=== PATIENT | female | born 1950 | race Caucasian/White ===

== ENCOUNTER 2017-11-03 10:39 | Emergency (ER) | payer MEDICARE, OTHER ==
[~2017-11-03] VITALS: Ht 160 cm; Wt 77.6 kg
[~2017-11-03 10:39] MED LIST: ALBAFORT325 MG PO; AMLODIPINE BESYL5 MG PO; B COMPLETE1 EACH PO; BENICAR 5 MG5 M1 PO; BENICAR40 MG PO; BIOTIN1 MG PO; CALCITRATE200 MG PO; CALCIUM CITRATE 1000 MG PO; CIPRO PO; CIPROFLOXACIN500 M3 PO; FERRO-TIME325 MG PO; FLOMAX PO; K-LOR20 MEQ PO; LISINOPRIL5 MG PO; MAG-OX 400 TAB400 M1 PO; MAGNESIUM400 MG PO; MEDROLDOSEPACK PO; MULTIVIT FLUOR PO; NAPROXEN 500MG500 M1 PO; NEURONTIN 300300 M1 PO; NEXIUM40 MG PO; NORCO 5-325 TA1 EACH PO; PERCOCET 5-3251 EACH PO; POTASSIUM20 PO; PROFERRIN12 MG PO; PROPAFENONE 22225 M1 PO; SELENIMIN50 MCG PO; SELENIUM100 MCG PO; SUPER B COMPLE1 EACH PO; SUPER B COMPLE150 MG PO; THERA M PLUS T1 EACH PO; VITAMIN A10000 UNI2 PO; VITAMIN A10000 UNI3 PO; VITAMIN B-1100 M1 PO; VITAMIN B12 5500 MC1 PO; VITAMIN D 5050000 I1 PO; VITAMIN E 400I400 I1 PO; VITAMIN E400 UNI6 PO; VITAMINC500 PO; ZINC CHELATE50 MG PO; ZINC PO; ZOFRAN 4 MG ORAL4 M1 DIS; ZOFRAN ODT4 MG PO; ZOLOFT 50 MG TA50 M1 PO
[2017-11-03] MEDS ORDERED: PROFERRIN12 MG PO (11:10)
[2017-11-03] MEDS ORDERED: MAGNESIUM CITR100 GM PO (11:10)
[2017-11-03] MEDS ORDERED: SELENIMIN200 MCG PO (11:11)
[2017-11-03] MEDS ORDERED: LIPITOR 20 MG T20 M1 PO (11:15)
[2017-11-03 11:16] LABS: ABSOLUTE EOSINOPHILS 0.1 thou/uL (0.0-0.7); ABSOLUTE LYMPHOCYTES 1.3 thou/uL (0.8-5.3); ABSOLUTE MONOCYTES 0.4 thou/uL (0.0-1.2); ABSOLUTE NEUTROPHILS 3.9 thou/uL (1.6-8.1); BASOPHILS 0.4 %; EOSINOPHILS 1.8 %; HEMATOCRIT 41.7 % (37.0-47.0); HEMOGLOBIN 13.5 gm/dL (12.0-15.0); LYMPHOCYTES 23.4 %; MCH 29.1 pg (26.0-34.0); MCHC 32.4 g/dL (28.0-37.0); MCV 89.8 fL (80.0-100.0); MONOCYTES 7.2 %; MPV 8.6 fl. (7.2-11.1); NUCLEATED RBCS 0 /100WBC; PLATELET COUNT* 114 thou/uL (150-400); POLYS 67.2 %; RBC 4.64 mil/uL (4.20-5.00); RDW-CV 13.9 % (10.5-14.5); WBC 5.7 thou/uL (4.0-11.0)
[2017-11-03] MEDS ORDERED: PROPAFENONE 22225 MG PO (11:16)
[2017-11-03] MEDS ORDERED: TARGADOX50 MG PO (11:16)
[2017-11-03] MEDS ORDERED: LASIX 40 MG TAB40 M2 PO (11:16)
[2017-11-03 11:17] LABS: URINE BILIRUBIN NEGATIVE (Negative); URINE BLOOD NEGATIVE (Negative); URINE CLARITY CLEAR; URINE COLOR YELLOW; URINE GLUCOSE-RANDOM NEGATIVE (Negative); URINE KETONES NEGATIVE (Negative); URINE LEUKOCYTES-REFLEX NEGATIVE (Negative); URINE NITRITE-REFLEX NEGATIVE (Negative); URINE PROTEIN NEGATIVE (Negative); URINE SPECIFIC GRAVITY 1.025 (1.005-1.030); URINE UROBILINOGEN 0.2 E.U./dl (0.2-1.0)
[2017-11-03 11:25] LABS: ANION GAP 9 mmol/L (7-16); BUN 25 mg/dL (7-18); CALCIUM 8.3 mg/dL (8.5-10.1); CHLORIDE 106 mmol/L (98-107); CO2 29 mmol/L (21-32); GLUCOSE 142 mg/dL (70-99); POTASSIUM 3.4 mmol/L (3.5-5.1); SODIUM 144 mmol/L (136-145)
[2017-11-03 11:52] LABS: ALKALINE PHOSPHATASE 211 U/L (46-116); NT-PRO BRAIN NAT PEPTIDE 48 pg/mL (<300); SGOT 14 U/L (15-37); SGPT 27 U/L (30-65); TOTAL BILIRUBIN 0.6 mg/dL (<0.1-1.0); TOTAL PROTEIN 7.1 g/dL (6.4-8.2); TROPONIN-I LEVEL <0.06 ng/mL (<0.06)
[2017-11-03 13:05] VITALS: BP 129/65
--- NOTE | 2017-11-03 15:52 | EKG ---
[place] [address] ELECTROCARDIOGRAM REPORT Name: DEVAUGHN STAPLES Room: [facility]#: [id number] Admission: 11/03/17 Attend Phys: Discharge: 11/03/17 Date of : 48 Report #: [id number] THIS REPORT FOR: //name// [facility] ED Test Date: 2017-11-03 Test Time: 11:03:43 Pat Name: DEVAUGHN STAPLES Department: Room: Gender: F Java Consultant: Liz NAIR : 1950 Requested By: Zackary Singer Order Number: [id number] MD: Tristan Ruby Measurements Intervals [place] Rate: 62 P: 19 MN: 146 QRS: -13 QRSD: 100 T: 22 QT: 417 QTc: 424 Interpretive Statements Sinus rhythm Compared to ECG 10/10/2016 03:15:32 T-wave abnormality no longer present Prolonged QT interval no longer present Electronically Signed On 11-03-2017 15:52:36 STATISTICAL MACHINE MECHANIC by Tristan Ruby [email or web address] <ELECTRONICALLY SIGNED> By: Tristan Ruby MD, [facility] 11/03/17 1552 1103 1103 Tristan Ruby MD, FAC /EPI
== END 2017-11-03 13:06 | disposition home or self-care (01) ==
LOC: M.ERS 10:39
PROVIDERS: Physician Assistant
DX: R42 Dizziness and giddiness (principal); R00.2 Palpitations; I48.91 Unspecified atrial fibrillation; M19.90 Unspecified osteoarthritis, unspecified site; Z87.442 Personal history of urinary calculi; Z98.890 Other specified postprocedural states

== ENCOUNTER 2018-09-11 23:36 | Inpatient (IN) | payer MEDICARE, OTHER ==
[~2018-09-11] VITALS: Ht 160 cm; Wt 88.0 kg
[~2018-09-11 23:36] MED LIST changes: +LASIX 40 MG TAB40 M2 PO; +LIPITOR 20 MG T20 M1 PO; +MAGNESIUM CITR100 GM PO; +PROPAFENONE 22225 MG PO; +SELENIMIN200 MCG PO; +TARGADOX50 MG PO
[2018-09-11 23:40] VITALS: BP 107/52
[2018-09-11] MEDS ORDERED: LOPRESSOR25 PO (23:47)
[2018-09-12 00:12] LABS: HEMATOCRIT 33.7 % (37.0-47.0); HEMOGLOBIN 10.8 gm/dL (12.0-15.0); MCH 28.1 pg (26.0-34.0); MCV 87.7 fL (80.0-100.0); MPV 8.5 fl. (7.2-11.1); NUCLEATED RBCS 0 /100WBC; PLATELET COUNT* 129 thou/uL (150-400); RBC 3.84 mil/uL (4.20-5.00); RDW-CV 14.1 % (10.5-14.5); WBC 9.3 thou/uL (4.0-11.0)
[2018-09-12 00:21] LABS: ANION GAP 9 mmol/L (7-16); BUN 22 mg/dL (7-18); CALCIUM 8.1 mg/dL (8.5-10.1); CHLORIDE 108 mmol/L (98-107); CO2 22 mmol/L (21-32); CREATININE 0.9 mg/dL (0.6-1.3); GLUCOSE 133 mg/dL (70-99); POTASSIUM 4.4 mmol/L (3.5-5.1); SODIUM 139 mmol/L (136-145)
[2018-09-12 00:24] LABS: INR 1.6; PROTIME 16.2 Seconds (9.20-11.50)
[2018-09-12 00:32] LABS: ALBUMIN 3.1 g/dL (3.4-5.0); ALKALINE PHOSPHATASE 113 U/L (46-116); NT-PRO BRAIN NAT PEPTIDE 136 pg/mL (<300); SGOT 18 U/L (15-37); SGPT 26 U/L (30-65); TOTAL BILIRUBIN 0.5 mg/dL (<0.1-1.0); TOTAL PROTEIN 6.1 g/dL (6.4-8.2); TROPONIN-I LEVEL <0.06 ng/mL (<0.06)
[2018-09-12 00:42] LABS: URINE BILIRUBIN NEGATIVE (Negative); URINE BLOOD NEGATIVE (Negative); URINE CLARITY CLEAR; URINE COLOR YELLOW; URINE GLUCOSE-RANDOM NEGATIVE (Negative); URINE KETONES NEGATIVE (Negative); URINE LEUKOCYTES-REFLEX NEGATIVE (Negative); URINE PROTEIN NEGATIVE (Negative); URINE SPECIFIC GRAVITY >= 1.030 (1.005-1.030); URINE UROBILINOGEN 0.2 E.U./dl (0.2-1.0)
[2018-09-12 00:51] LABS: URINE NITRITE-REFLEX POSITIVE (Negative)
[2018-09-12 01:25] LABS: ABSOLUTE EOSINOPHILS 0.1 thou/uL (0.0-0.7); ABSOLUTE LYMPHOCYTES 1.1 thou/uL (0.8-5.3); ABSOLUTE MONOCYTES 0.2 thou/uL (0.0-1.2); ABSOLUTE NEUTROPHILS 7.9 thou/uL (1.6-8.1)
[2018-09-12 01:26] LABS: PLATELET ESTIMATE DECREASED
[2018-09-12 01:58] LABS: CASTS None Seen /LPF (None Seen); MUCUS 0-3 Light strn/LPF (None Seen); SQUAMOUS >10 Many /LPF (0-3)
[2018-09-12 01:59] LABS: BACTERIA-REFLEX >30 Many /HPF (None Seen); CRYSTALS None Seen /LPF (None Seen); URINE RBC None Seen /HPF (0-2); URINE WBC-REFLEX 0-5 Rare /HPF (0-5)
[2018-09-12 04:47] VITALS: BP 115/58
[2018-09-12 05:13] VITALS: BP 94/48
[2018-09-12] MEDS ORDERED: MAGOX 400400 MG PO (06:19)
[2018-09-12] MEDS ORDERED: ASPIR 8181 MG PO (06:22)
[2018-09-12 08:00] VITALS: BP 103/57
[2018-09-12 12:01] VITALS: BP 115/52
[2018-09-12 16:45] VITALS: BP 126/59
--- NOTE | 2018-09-12 17:37 | 2DMMODE ---
[place] [address] 2 D/M-MODE ECHOCARDIOGRAM Name: DEVAUGHN STAPLES Room: [address] IN [facility]#: [id number] Admission: 09/12/18 Attend Phys: Romeo Segovia, Discharge: Date of : 48 Date of Service: 09/12/18 1737 Report #: [id number] THIS REPORT FOR: //name// APPROVED REPORT Study performed: 09/12/2018 14:09:59 EXAM: Comprehensive 2D, Doppler, and color-flow Echocardiogram Patient Location: In-Patient Room #: [facility] Status: routine BSA: 1.88 HR: 75 bpm BP: 103/57 mmHg Rhythm: NSR Other Information Study Quality: Good Indications Hypotension Congestive Heart Failure 2D Dimensions IVSd: 11.88 (7-11mm) LVOT Diam: 18.83 (18-24mm) LVDd: 54.24 mm PWd: 9.18 (7-11mm) Ascending Ao: 29.60 (22-36mm) LVDs: 32.57 (25-40mm) Aortic Root: 27.45 mm Volumes Left Atrial Volume (Systole) LA ESV Index: 37.70 mL/m2 Aortic Valve AoV Peak Jese.: 1.93 m/s AO Peak Gr.: 14.92 mmHg LVOT Max P.14 mmHg AO Mean Gr.: 8.63 mmHg LVOT Mean P.85 mmHg LVOT Max V: 1.59 m/s AO V2 VTI: 40.71 cm LVOT Mean V: 1.00 m/s ASIA (VTI): 2.47 cm2 LVOT V1 VTI: 36.06 cm Mitral Valve E/A Ratio: 0.73 MV Decel. Time: 256.92 [place] [address] 2 D/M-MODE ECHOCARDIOGRAM Name: DEVAUGHN STAPLES Room: [address] IN [facility]#: [id number] Admission: 09/12/18 Attend Phys: Romeo Segovia, Discharge: Date of : 48 Date of Service: 09/12/18 1737 Report #: [id number] MV E Max Jese.: 1.07 m/s MV PHT: 74.51 ms MVA (PHT): 2.95 cm2 TDI E/Lateral E': 9.73 E/Medial E': 10.70 Medial E' Jese.: 0.10 m/s Lateral E' Jese.: 0.11 m/s Pulmonary Valve PV Peak Jese.: 1.13 m/s PV Peak Gr.: 5.11 mmHg Tricuspid Valve RAP Estimate: 5.00 mmHg TR Peak Gr.: 26.10 mmHg RVSP: 31.00 mmHg PA Pressure: 31.00 mmHg Left Ventricle The left ventricle is normal size. There is normal LV segmental wall motion. There is normal left ventricular wall thickness. Left ventricular systolic function is normal. The left ventricular ejection fraction is within the normal range. LVEF is 60-65%. Grade I - abnormal relaxation pattern. Right Ventricle The right ventricle is normal size. The right ventricular systolic function is normal. Atria Left atrium is mildly dilated. The right atrium size is normal. Aortic Valve The aortic valve is normal in structure. No aortic regurgitation is present. There is no aortic valvular stenosis. Mitral Valve The mitral valve is normal in structure. Trace mitral regurgitation. No evidence of mitral valve stenosis. Tricuspid Valve The tricuspid valve is normal in structure. Mild tricuspid regurgitation. Mild pulmonary hypertension. Pulmonic Valve The pulmonary valve is normal in structure. There [place] [address] 2 D/M-MODE ECHOCARDIOGRAM Name: DEVAUGHN STAPLES Room: [address]#: [id number] Admission: 09/12/18 Attend Phys: Romeo Segovia, Discharge: Date of : 48 Date of Service: 09/12/18 1737 Report #: [id number] valvular regurgitation. Great Vessels The aortic root is normal in size. IVC is normal in size and collapses >50% with inspiration. Pericardium There is no pericardial effusion. <Conclusion> The left ventricle is normal size. There is normal left ventricular wall thickness. Left ventricular systolic function is normal. The left ventricular ejection fraction is within the normal range. LVEF is 60-65%. Grade I - abnormal relaxation pattern. The right ventricle is normal size. Left atrium is mildly dilated. The aortic valve is normal in structure. The mitral valve is normal in structure. The tricuspid valve is normal in structure. IVC is normal in size and collapses >50% with inspiration. There is normal LV segmental wall motion. <ELECTRONICALLY SIGNED> By: Tristan Ruby MD, FACC 09/12/18 1737 [id number] Tristan Ruby MD, FACC /INF
[2018-09-12 19:45] VITALS: BP 125/63
[2018-09-13] VITALS: BP 110/56
[2018-09-13 04:00] VITALS: BP 118/56
[2018-09-13 04:49] LABS: HEMOGLOBIN 9.5 gm/dL (12.0-15.0); MCH 28.6 pg (26.0-34.0); MCHC 32.7 g/dL (28.0-37.0); MCV 87.6 fL (80.0-100.0); RBC 3.31 mil/uL (4.20-5.00); RDW-CV 14.2 % (10.5-14.5); WBC 4.7 thou/uL (4.0-11.0)
[2018-09-13 05:02] LABS: ALBUMIN 2.5 g/dL (3.4-5.0); CALCIUM 7.8 mg/dL (8.5-10.1); CREATININE 0.8 mg/dL (0.6-1.3); MAGNESIUM 1.8 mg/dL (1.8-2.4); TOTAL BILIRUBIN 0.4 mg/dL (<0.1-1.0); TOTAL PROTEIN 5.3 g/dL (6.4-8.2)
[2018-09-13 06:47] LABS: INFLUENZA A ANTIGEN None Detected (None Detect); INFLUENZA B ANTIGEN None Detected (None Detect)
[2018-09-13 07:45] VITALS: BP 126/63
--- NOTE | 2018-09-13 07:46 | CON ---
[address] [address] CONSULTATION Name: DEVAUGHN STAPLES Room: [address] IN M.R.#: [id number] Admission: 09/12/18 Attend Phys: Romeo Segovia MD Discharge: Date of : 48 Report #: [id number] THIS REPORT FOR: //name// CC: Romeo Morin DATE OF SERVICE: 09/12/2018 INFECTIOUS DISEASE CONSULTATION ATTENDING PHYSICIAN: Dr. Weems REASON FOR EVALUATION: Febrile illness. HISTORY OF PRESENT ILLNESS: Chart reviewed, patient examined. This is a 68-year-old woman with a history of recurrent febrile episodes. She states initial one back post procedure when she had a biliopancreatic diversion with duodenal switch. Since that time, she has had recurrent issues of febrile illness some of which initially involved gastrointestinal related complaints including nausea and vomiting. This was followed by generalized arthralgias primarily involving the knees, ankles and hands. She was at one point diagnosed with bacterial overgrowth. She had a pattern of taking 1 out of every 4 weeks of doxycycline as a prophylactic measure. This was discontinued. More recently, she was noted to have fevers some of which were high grade felt to be consistent. She did have a significant amount of GI related complaints with this; however, developed generalized arthralgias. She was treated with doxycycline and seemed to have a clinical improvement only to have what they suggest was relapse post discontinuation. She is not encephalopathic. Overall, she feels quite a bit better than she did yesterday. She had developed a near syncopal episode with some nausea and a single episode of emesis, which she attributed to perhaps dehydration. She was found to be hypotensive as well. She was empirically dosed with Levaquin, Zosyn and given a dose of doxycycline as well. She is not confused at this point. ALLERGIES: None known. CURRENT MEDICATIONS: Include doxycycline, enoxaparin, hydrocodone, ergocalciferol, aspirin, magnesium, atorvastatin, ascorbic acid, ferrous sulfate, calcium carbonate, thiamine, iron, ondansetron and pantoprazole. PAST MEDICAL HISTORY: He has had renal lithiasis, previous history of septicemia with obstructive uropathy, diverticulosis, atrial fibrillation, diabetes mellitus type 2, obstructive sleep apnea, osteoarthritis, carpal tunnel, breast reduction, bilateral total knee arthroplasties in 2000 and the biliopancreatic diversion [place] [address] CONSULTATION Name: DEVAUGHN STAPLES Room: [address] IN [facility]#: [id number] Admission: 09/12/18 Attend Phys: Romeo Segovia MD Discharge: Date of : 48 Report #: [id number] SOCIAL HISTORY: Nonsmoker and no ethanol. FAMILY HISTORY: Noncontributory. REVIEW OF SYSTEMS: Notable as above, otherwise a 10-point review of systems is unremarkable. PHYSICAL EXAMINATION: GENERAL: She is alert, cooperative, appropriate, appears somewhat chronically ill-appearing, in mild distress and slightly undernourished. VITAL SIGNS: Temperature 97.8, pulse 62, respirations 16 and blood pressure 103/57. SKIN: Warm and dry. HEENT AND NECK: Neck is supple. No oral lesions. No conjunctivitis. LUNGS: Diminished breath sounds and scattered crackles at the bases. HEART: Regular. I do not appreciate a murmur. No rub. ABDOMEN: Soft, nontender and nondistended. EXTREMITIES: No cyanosis or edema. GENITOURINARY AND RECTAL: Deferred. LABORATORY DATA: PT of 16.2 and INR of 1.6. D-dimer of 0.52. Lactic acid 1.2. Electrolytes: Sodium 139, potassium 4.4, chloride 108, bicarbonate is 22, anion gap of 9, BUN and creatinine 22 and 0.9 and glucose of 133. LFTs are unremarkable. Albumin of 3.1, total protein 6.1. Estimated GFR of 62. CBC: White count of 9.3, H and H 10.8 and 33.7 and platelets of 129. Differential did show 12% bands. Urinalysis: 0-5 white cells, greater than 30 bacteria with 10 squamous. CRP of less than 2.0 with a sed rate of 42. CTA of the chest, patchy basilar infiltrates, question atelectasis versus pneumonitis: CT of abdomen and pelvis, no inflammatory masses, ascites, bowel obstruction or other acute process, nonobstructing left-sided nephrolithiasis, nonspecific splenomegaly and scattered colonic diverticulosis. ASSESSMENT: Febrile illness with generalized arthralgias certainly raises the question of some sort of a nonbacterial etiology such as viral or perhaps immune driven. Doxycycline seems to have alleviated in the past. We will do some serologies. There is no evidence of any intraabdominal, pelvic inflammatory process. At this point, she is not overtly toxic. We will continue the doxycycline. We will await the outstanding cultures. <ELECTRONICALLY SIGNED> By: Lewis Penn MD 09/13/18 0746 1145 [id number] Penn MD /nt
--- NOTE | 2018-09-13 11:12 | EKG ---
[place] [address] ELECTROCARDIOGRAM REPORT Name: DEVAUGHN STAPLES Room: [address] ADM IN .R.#: [id number] Admission: 09/12/18 Attend Phys: Romeo Segovia MD Discharge: Date of : 48 Report #: [id number] THIS REPORT FOR: //name// [facility] ED Test Date: 2018-09-11 Test Time: 23:48:25 Pat Name: DEVAUGHN STAPLES Department: Room: [facility] Gender: F Rug Sizer: : 1950 Requested By: Radha Kingston Order Number: [id number] MD: Awais Landaverde Measurements Intervals [place] Rate: 68 P: 32 NM: 155 QRS: -1 QRSD: 102 T: 31 QT: 419 QTc: 446 Interpretive Statements Sinus rhythm Low voltage, precordial leads Compared to ECG 11/03/2017 11:03:43 Low QRS voltage now present Electronically Signed On 09-13-2018 11:11:52 PHP MYSQL WEB DEVELOPER by Awais Landaverde [email or web address] <ELECTRONICALLY SIGNED> By: Awais Landaverde MD, FACC 09/13/18 1111 [id number] Awais Landaverde MD, FAC /EPI
[2018-09-13 12:00] VITALS: BP 107/45
[2018-09-13 13:12] LABS: CMV IgM Abs <30.0 AU/mL (0.0-29.9)
[2018-09-13 16:00] VITALS: BP 121/66
[2018-09-13 20:00] VITALS: BP 117/75
[2018-09-14 04:08] VITALS: BP 139/68
[2018-09-14] MEDS ORDERED: BACTRIM DS TAB1 EACH PO (12:31)
[2018-09-14] MEDS ORDERED: SENNA S TABLET1 EACH PO (12:37)
[2018-09-14 14:09] LABS: ANA INTERPRETATION Negative (Negative)
[2018-09-14 14:59] VITALS: BP 139/68
--- NOTE | 2018-09-26 17:35 | CON ---
[address] [address] CONSULTATION Name: JHOANDEVAUGHN L Room: [address] IN M.R.#: [id number] Admission: 09/12/18 Attend Phys: Romeo Segovia MD Discharge: 09/14/18 Date of : 48 Report #: [id number] THIS REPORT FOR: //name// CC: Romeo Morin MD DATE OF SERVICE: 09/12/2018 REFERRING PHYSICIAN: Romeo Segovia MD. REASON FOR CONSULTATION: Recurrent bacterial overgrowth. IMPRESSION: 1. Recurrent small bowel bacterial overgrowth with the patient having risk factors for the same including previous gastric bypass and need for chronic proton pump inhibitor therapy. 2. Recurrent iron deficiency anemia secondary to previous surgery. 3. History of remote biliopancreatic diversion with duodenal switch in 2007 in [place]. 4. Intolerance to FLAGYL with inability to take this for the same. RECOMMENDATIONS: 1. At the present time, I am not terribly concerned about the patient's nausea and vomiting. She is not really having a lot of problem with nausea and vomiting at this time, but we are concerned about gas, bloating and issues with temperatures and fatigue. I am not familiar with the bacterial overgrowth causes fevers and chills, so I doubt that this is causing any of her issues as well. She had been maintained on chronic doxycycline, which has helped for which she will take that for a week at a time, but is no longer working as well. She had been intolerant to FLAGYL, so we will look to see if she can tolerate something like Augmentin or Xifaxan. 2. She will follow up with ____ office for further care. HISTORY OF PRESENT ILLNESS: The patient is a pleasant 68-year-old white female who underwent a biliopancreatic diversion with duodenal switch for obesity back in 2007 and has done well with the same; however, she has had some problem with chronic recurrent small bowel bacterial overgrowth and has been followed by my partner, ____ for the same. She has been maintained on doxycycline for a week at a time for quite some time and has worked fairly well for her. However, she has been having problems with low-grade fevers, joint aches and pains over the last couple of weeks, she is just not feeling well. She denies any complaints referable to her upper or lower GI tract at this point in time. She is in the hospital for further evaluation [place] [address] CONSULTATION Name: STAPLESDEVAUGHN SANDERSON Jj Room: [address] IN ..#: [id number] Admission: 09/12/18 Attend Phys: Romeo Segovia MD Discharge: 09/14/18 Date of : 48 Report #: [id number] ALLERGIES: TO FLAGYL. MEDICATIONS: Include Biotin, Proferrin 325 mg twice daily (an iron supplement), Selenium 100 mcg once daily, vitamin E 1 tablet daily, vitamin C 1000 mg daily, vitamin B complex with vitamin C and Super B-complex 150 mg daily, vitamin D 50,000 units daily, ____ mg p.o. daily, thiamine 100 mg daily, zinc chelate 2 tablets daily, vitamin A 1 tablet daily, potassium 20 mEq 3 times daily, Zoloft 50 mg 2 tablets at bed daily, atorvastatin 20 mg daily, furosemide 40 mg daily, doxycycline as I mentioned above, metoprolol 25 mg daily, flecainide the dose which is not known. PAST MEDICAL AND SURGICAL HISTORY: Remarkable for chronic atrial fibrillation, hypertension. She has had problems with recurrent kidney stones, diverticular disease. She has had chronic arthritis as well. She previously had diabetes, which was insulin requiring, but since her bypass surgery, she has not had any problems related to the same. Does have sleep apnea. She has had previous tubal ligation, ectopic , breast reduction. She has had right total knee replacement, left total knee replacement and has a spinal cord issues. SOCIAL HISTORY: The patient does not smoke, occasionally drinks alcohol. FAMILY HISTORY: Negative. PHYSICAL EXAMINATION: GENERAL: Pleasant 68-year-old white female who is awake and alert. CARDIOPULMONARY: Revealed a regular rate and rhythm. LUNGS: Clear. ABDOMEN: Soft, nontender. No rebound or guarding noted. LABORATORY TESTS: Revealed a white count 9.3, hemoglobin 10.8, platelet count of 129,000, MCV is 87.7 and RDW is 14.1. Sodium 139, potassium 4.4, chloride 108, bicarbonate is 22, BUN is 22, creatinine 0.9, GFR 62, total bilirubin 0.5, alkaline phosphatase 113, AST is 18, ALT 26, albumin is 3.1. Her INR was 1.6. CT scan of the abdomen and pelvis revealed mild splenomegaly, otherwise examination was unremarkable. CT scan of the chest with IV contrast was unrevealing without evidence for any pulmonary emboli. DISCUSSION: At the present time, the patient has had problem with small bowel bacterial overgrowth. There is nothing indicating any major issues related to the same at this time causing her fevers and chills. Would have Infectious Disease see her if necessary for followup as an outpatient. As an aside, with regard to her splenomegaly, it is unclear to me why she would have splenomegaly and she may benefit from HIDA scan to ensure that she does not have advanced fibrosis possibly related to nonalcoholic fatty liver. It is also unclear to me why she has an elevated INR, but this may be just related to being [facility] [address] [place] [address] CONSULTATION Name: DEVAUGHN STAPLES Room: [address]#: [id number] Admission: 09/12/18 Attend Phys: Romeo Segovia MD Discharge: 09/14/18 Date of : 48 Report #: [id number] on antibiotics. I will look into this in our office notes and see if any intervention or evaluation has been performed in the past with regards to the same. <ELECTRONICALLY SIGNED> By: Bahman Tucker DO 09/26/18 1735 1558 [id number] Tucker DO /nt
== END 2018-09-14 15:55 | disposition home or self-care (01) | DRG 690 ==
LOC: M.ERS 23:36 → M.TBA-ER 09-12 03:23 → M.3W 09-12 03:23
PROVIDERS: Emergency Medicine; Internal Medicine; Specialist; ADMIT Internal Medicine
DX: N39.0 Urinary tract infection, site not specified (principal); E44.1 Mild protein-calorie malnutrition; I50.32 Chronic diastolic (congestive) heart failure; M19.90 Unspecified osteoarthritis, unspecified site; I48.91 Unspecified atrial fibrillation; I95.9 Hypotension, unspecified; K59.03 Drug induced constipation; T40.2X5A Adverse effect of other opioids, initial encounter; K57.90 Diverticulosis of intestine, part unspecified, without perforation or abscess without bleeding; M25.50 Pain in unspecified joint; E11.9 Type 2 diabetes mellitus without complications; G47.33 Obstructive sleep apnea (adult) (pediatric); Z96.653 Presence of artificial knee joint, bilateral; Z87.442 Personal history of urinary calculi; Z79.899 Other long term (current) drug therapy; Y92.89 Other specified places as the place of occurrence of the external cause; Z68.34 Body mass index [BMI] 34.0-34.9, adult

== ENCOUNTER 2018-10-14 20:19 | Inpatient (IN) | payer MEDICARE, OTHER ==
[~2018-10-14] VITALS: Ht 160 cm; Wt 78.5 kg
--- NOTE | ~2018-10-14 | CON ---
[address] [address] CONSULTATION Name: DEVAUGHN STAPLES Room: [address] IN M.R.#: [id number] Admission: 10/14/18 Attend Phys: Александр Hernandez Discharge: Date of : 48 Report #: [id number] THIS REPORT FOR: //name// CC: [facility] Rene DATE OF SERVICE: 10/15/2018 REASON FOR CONSULTATION: Left ureterovesical junction stone and recurrent UTI. HISTORY OF PRESENT ILLNESS: The patient is a very pleasant 68-year-old female who has previously seen Dr. Chowdhury in our practice. She has a history of stones and has required ureteroscopy in the past. She has been struggling with a UTI for the past month or so. She was admitted in September for an E. coli UTI. She had a CT scan at the time, which showed a nonobstructing left kidney stone. However, she has had trouble clearing the infection and now presents with left flank pain. She denies fever at home, denies vomiting, but has had nausea. CT scan was repeated and shows now a 4-5 mm left UVJ stone. PAST MEDICAL HISTORY: Includes kidney stones, atrial fibrillation, UTIs, osteoarthritis, sleep apnea, diabetes, diverticulosis. PAST SURGICAL HISTORY: Includes ureteroscopy and laser lithotripsy, gastric bypass surgery, loop recorder for atrial fibrillation, bilateral knee replacements, breast reduction, tubal ligation, ectopic . MEDICATIONS: Reviewed and are per inpatient medical record. ALLERGIES: None. FAMILY HISTORY: Noncontributory. SOCIAL HISTORY: The patient lives with her . She denies smoking, drug use or alcohol use. REVIEW OF SYSTEMS: Twelve-point review of systems is performed and is negative except as noted above in HPI. PHYSICAL EXAMINATION: VITAL SIGNS: Temperature is 36.4, pulse 61, respirations 20, blood pressure 104/52. She is 97% on room air. She has been afebrile since admission. GENERAL: She is a well-developed, well-nourished white female, in no acute distress. She is alert and oriented x 3. HEENT: Normocephalic, atraumatic. LUNGS: [place] [address] CONSULTATION Name: DEVAUGHN STAPLES Room: [address]#: [id number] Admission: 10/14/18 Attend Phys: Александр Hernandez Discharge: Date of : 48 Report #: [id number] HEART: Regular. ABDOMEN: Soft, nontender, nondistended. BACK: No CVA tenderness. EXTREMITIES: Without clubbing, cyanosis or edema. LABORATORY DATA: White count 4.8, hemoglobin 10.1, platelets 145. Her chemistries show mildly elevated chloride at 109, BUN is 19, creatinine is 1.1, glucose 107. Her lactic acid is 1.0. Urinalysis shows blood, but was a contaminant with squamous cells and bacteria. Culture has been sent and is pending. CT scan was personally reviewed. She has a 5 mm left UVJ obstructing stone. ASSESSMENT AND PLAN: 1. Left ureterovesical junction stone. 2. Recent urinary tract infection. I discussed options with her including medical expulsive therapy, outpatient ESWL or inpatient ureteroscopy. She does not want to deal with this any longer and wants to proceed with ureteroscopy, laser lithotripsy and stent. She has had stents before. Risks of procedure discussed including but not limited to infection, bleeding, injury to the urethra, bladder, ureter; need for secondary procedures, stent pain, cardiopulmonary complications. She voiced understanding and wishes to proceed. By: [id number] Knox MD /nt
[~2018-10-14 20:19] MED LIST changes: +ASPIR 8181 MG PO; +BACTRIM DS TAB1 EACH PO; +LOPRESSOR25 PO; +MAGOX 400400 MG PO; +SENNA S TABLET1 EACH PO
[2018-10-14 20:31] VITALS: BP 129/66
[2018-10-14] MEDS ORDERED: XARELTO20 MG PO (20:38)
[2018-10-14] MEDS ORDERED: FLECAINIDE ACET50 M1 PO (20:38)
[2018-10-14 20:53] LABS: URINE BILIRUBIN NEGATIVE (Negative); URINE BLOOD 3+ (Negative); URINE CLARITY CLEAR; URINE COLOR YELLOW; URINE GLUCOSE-RANDOM NEGATIVE (Negative); URINE KETONES NEGATIVE (Negative); URINE LEUKOCYTES-REFLEX NEGATIVE (Negative); URINE NITRITE-REFLEX NEGATIVE (Negative); URINE PROTEIN NEGATIVE (Negative); URINE SPECIFIC GRAVITY >= 1.030 (1.005-1.030); URINE UROBILINOGEN 0.2 E.U./dl (0.2-1.0)
[2018-10-14 20:54] LABS: ABSOLUTE EOSINOPHILS 0.1 thou/uL (0.0-0.7); ABSOLUTE LYMPHOCYTES 1.1 thou/uL (0.8-5.3); ABSOLUTE MONOCYTES 0.4 thou/uL (0.0-1.2); ABSOLUTE NEUTROPHILS 3.2 thou/uL (1.6-8.1); BASOPHILS 0.3 %; EOSINOPHILS 2.7 %; HEMATOCRIT 31.9 % (37.0-47.0); HEMOGLOBIN 10.1 gm/dL (12.0-15.0); LYMPHOCYTES 22.1 %; MCH 27.6 pg (26.0-34.0); MCHC 31.7 g/dL (28.0-37.0); MONOCYTES 8.6 %; MPV 8.3 fl. (7.2-11.1); NUCLEATED RBCS 0 /100WBC; PLATELET COUNT* 145 thou/uL (150-400); POLYS 66.3 %; RBC 3.67 mil/uL (4.20-5.00); RDW-CV 16.2 % (10.5-14.5); WBC 4.8 thou/uL (4.0-11.0)
[2018-10-14 21:00] LABS: SQUAMOUS 4-10 Moderate /LPF (0-3); URINE RBC >20 Many /HPF (0-2); URINE WBC-REFLEX 0-5 Rare /HPF (0-5)
[2018-10-14 21:30] LABS: CALCIUM 8.2 mg/dL (8.5-10.1); CREATININE 1.1 mg/dL (0.6-1.3); POTASSIUM 4.2 mmol/L (3.5-5.1); TOTAL BILIRUBIN 0.4 mg/dL (<0.1-1.0)
[2018-10-14 21:31] LABS: ALBUMIN 3.3 g/dL (3.4-5.0); TOTAL PROTEIN 6.6 g/dL (6.4-8.2)
[2018-10-14 23:51] VITALS: BP 114/56
[2018-10-15 00:04] VITALS: BP 102/53
[2018-10-15] MEDS ORDERED: MACROBID 100 M100 MG PO (00:16)
--- NOTE | 2018-10-15 07:51 | NUR ---
PT ADMITTED TO ROOM 228 DURING THIS SHIFT; VSS, A+OX4, HAS SOME LLQ PAIN, MED/SURG STATUS, UP AD NIDA AND STEADY. SHE IS ABLE TO COMMUNICATE HER NEEDS TO STAFF EFFECTIVELY. CURRENT PAIN MEDICATION REGIMEN HAS BEEN ADEQUATE FOR CONTROLLING HER PAIN UP TO THIS TIME. CT RENAL SHOWED LIKELY STONE; URINE HAS BEEN STRAINED UP TO THIS TIME. UROLOGY CONSULT FOR TODAY.
[2018-10-15 08:00] VITALS: BP 104/52
--- NOTE | 2018-10-15 11:58 | NUR ---
PATIENT ARRIVED TO UNIT A 1100. ALERT AND ORIENTED X 4. VITAL SIGNS STABLE ON ROOM AIR. PATIENT IS NPO. AGREE WITH PREVIOUS ASSESSMENT AND CHARTING. ORIENTED PATIENT TO ROOM. CALL LIGHT WITHIN REACH. NURSING WILL CONTINUE TO MONITOR.
[2018-10-15 13:25] VITALS: BP 104/52
[2018-10-15 16:00] VITALS: BP 98/51
--- NOTE | 2018-10-15 17:39 | NUR ---
PATIENT ALERT AND ORIENTED X 4. VITAL SIGNS STABLE ON ROOM AIR. UP AD NIDA IN ROOM. IV PATENT WITH FLUIDS INFUSING. TOLERATING DIET. PATIENT TO BE NPO AFTER MIDNIGHT FOR KIDNEY STONE REMOVAL AND STEN PLACEMENT TOMORROW. HOURLY ROUNDS MAINTAINED THROUGHOUT THE SHIFT. CALL LIGHT WITHIN REACH. NURSING WILL CONTINUE TO MONITOR.
--- NOTE | 2018-10-15 18:41 | NUR ---
PATIENT DISCHARGED FROM UNIT AT 1835. ALERT AND ORIENTED X 4. VITAL SIGNS STABLE ON ROOM AIR. UP AD NIDA IN ROOM AND AMBULATING IN HALLWAY. PAIN AND NAUSEA CONTROLLED WITH MEDICATION. IV DISCONTINUED. DISCHARGE INSTRUCTIONS, MEDICATION INFORMATION AND SCRIPTS GIVEN TO PATIENT. LEFT WITH ALL BELONGINGS. PATIENT LEFT WITH SIGNIFICANT OTHER VIA CAR.
--- NOTE | 2018-10-16 03:32 | NUR ---
URINE STRAINED AND STONE WAS PASSED AND RETREIVED. STONE SENT TO LAB FOR ANALYSIS. PATIENT STATING THAT SHE IS NOT FEELING ANYMORE PRESSURE IN LEFT LOWER ABDOMINAL AREA ANYMORE AT THIS TIME.
--- NOTE | 2018-10-16 06:10 | NUR ---
CALLED UROLOGY ANSWERING SERVICE REGARDING RETRIEVAL OF KIDNEY STONE. AWAITING CALL BACK.
--- NOTE | 2018-10-16 07:43 | NUR ---
PATIENT HAS SLEPT WELL THROUGHOUT THE NIGHT. PAIN WELL CONTROLLED. PATIENT PASSES STONE AROUND 03:30 IN THE MORNING. STONE SENT TO LAB. NOTIFIED THIS AM. CANCELLED PROCEDURE SCHEDULED THIS AM. WATERWAY TRAFFIC CHECKER NOTIFIED WELL OF CANCELLATION OF PROCEDURE. IV IN LEFT WRIST-MS @ 100ML/HR. PATIENT INSTRUCTED TO USE CALL LIGHT WHEN NEEDING ASSISTANCE. HOURLY ROUNDS MADE. WILL CONTINUE WITH PLAN OF CARE AND NURSING TO MONITOR.
[2018-10-16 08:45] VITALS: BP 108/56
[2018-10-16 12:52] VITALS: BP 108/56
--- NOTE | 2018-10-16 12:59 | EKG ---
[place] [address] ELECTROCARDIOGRAM REPORT Name: DEVAUGHN STAPLES Room: [address] ADM IN M.R.#: [id number] Admission: 10/14/18 Attend Phys: Александр Hernandez Discharge: Date of : 48 Report #: [id number] THIS REPORT FOR: //name// [facility] Test Date: 2018-10-15 Test Time: 13:02:37 Pat Name: DEVAUGHN STAPLES Department: Room: [address] Gender: F Quilter Fixer: : 1950 Requested By: Mark Li Order Number: [id number] Reading MD: Awais Landaverde Measurements Intervals [place] Rate: 56 P: 32 IA: 159 QRS: 3 QRSD: 103 T: 22 QT: 486 QTc: 470 Interpretive Statements Sinus rhythm Low voltage, extremity and precordial leads Compared to ECG 09/11/2018 23:48:25 No significant changes Electronically Signed On 10-16-2018 12:58:59 LEAD PROCESS ENGINEER by Awais Landaverde [email or web address] <ELECTRONICALLY SIGNED> By: Awais Landaverde MD, [facility] 10/16/18 1258 1302 1302 Awais Landaverde MD, [facility] /EPI
--- NOTE | 2018-10-16 14:01 | NUR ---
PATIENT DISCHARGED FROM UNIT AT 1333. ALERT AND ORIENTED X 4. VITAL SIGNS STABLE ON ROOM AIR. UP AD NIDA IN ROOM. DENIES PAIN AND NAUSEA. DISCONTINUED IV. DISCHARGE INSTRUCTIONS AND MEDICATION INFORMATION GIVEN TO PATIENT. LEFT WITH ALL BELONGINGS. PATIENT LEFT WITH VIA CAR.
[2018-10-16 14:08] VITALS: BP 108/56
== END 2018-10-16 13:33 | disposition home or self-care (01) | DRG 694 ==
LOC: M.ERS 20:19 → M.TBA-ER 22:11 → M.2W 22:57 → M.ORTHSURG 10-15 10:58
PROVIDERS: Nurse Practitioner; ADMIT Internal Medicine
DX: N20.2 Calculus of kidney with calculus of ureter (principal); N39.0 Urinary tract infection, site not specified; M19.90 Unspecified osteoarthritis, unspecified site; I48.91 Unspecified atrial fibrillation; K57.90 Diverticulosis of intestine, part unspecified, without perforation or abscess without bleeding; E11.9 Type 2 diabetes mellitus without complications; Z96.653 Presence of artificial knee joint, bilateral; Z28.21 Immunization not carried out because of patient refusal; Z87.442 Personal history of urinary calculi; Z98.84 Bariatric surgery status

== ENCOUNTER → 2018-11-23 | Outpatient (CLI) | payer MEDICARE, OTHER ==
[~2018-11-23] MED LIST changes: +FLECAINIDE ACET50 M1 PO; +MACROBID 100 M100 MG PO; +XARELTO20 MG PO
== END ==
LOC: M.ULTRA 14:43
DX: I82.403 Acute embolism and thrombosis of unspecified deep veins of lower extremity, bilateral (principal); I48.0 Paroxysmal atrial fibrillation; I73.00 Raynaud's syndrome without gangrene; E11.9 Type 2 diabetes mellitus without complications

== ENCOUNTER → 2018-12-14 | Outpatient (CLI) | payer MEDICARE, OTHER | LOC: M.RAD 14:27 | DX: M19.012 Primary osteoarthritis, left shoulder (principal); M85.88 Other specified disorders of bone density and structure, other site ==

== ENCOUNTER → 2019-10-16 | Outpatient (CLI) | payer MEDICARE, OTHER | LOC: M.RAD 10:10 | DX: M19.012 Primary osteoarthritis, left shoulder (principal); J84.10 Pulmonary fibrosis, unspecified ==